=== PATIENT | female | born 1990 | race Caucasian/White ===

== ENCOUNTER 2017-06-12 07:14 | Inpatient (IN) | payer BC ==
[2017-06-12] MEDS ORDERED: OBEPIDURAL* 250 ML ONE (08:42)
[2017-06-12 09:11] LABS: Hematocrit 38 % (35-47); Mean Corpuscular HGB Conc 34 g/dl (31-36); Mean Corpuscular Hemoglobin 32 pg (27-31); Mean Corpuscular Volume 94 fL (80-97); Mean Platelet Volume 8 um3 (7.4-10.4); Red Blood Count 4.05 10^6/ul (4.0-5.4); Red Cell Distribution Width 13 % (10.5-15); White Blood Count 17.2 10^3/ul (3.5-10.8)
[2017-06-12] MEDS ORDERED: Phenylephrine IV* 40 MCG/ML 10 ML SYRINGE IV PUSH PRN ×2 (09:23)
[2017-06-12] MEDS ORDERED: Famotidine TAB* 20 MG PO PRN (09:23)
[2017-06-12] MEDS ORDERED: Sodium Citrate/Citric Acid* 15 ML UDC PO PRN (09:23)
[2017-06-12] MEDS ORDERED: OBEPIDURAL* 250 ML EPIDURAL SCH (10:00)
[2017-06-12] MEDS ORDERED: Oxytocin in LR* 20 UNITS/1,000 ML BAG IVPB ONE (13:45)
[2017-06-12] MEDS ORDERED: Oxytocin in LR* 20 UNITS/1,000 ML BAG IVPB SCH ×2 (14:00→16:00)
[2017-06-12] MEDS ORDERED: Dibucaine 1% 28.35 GM TUBE PR PRN (15:57)
[2017-06-12] MEDS ORDERED: Witch Hazel PAD* JAR TOPICAL PRN (15:57)
[2017-06-12] MEDS ORDERED: Glycerin ADULT SUPP PR PRN (15:57)
[2017-06-12] MEDS: Ibuprofen TAB* 600 MG PO PRN (21:03)
[2017-06-12] MEDS: Docusate CAP* 100 MG PO SCH (21:04)
[2017-06-13 07:08] LABS: Hematocrit 33 % (35-47); Hemoglobin 11.3 g/dl (12.0-16.0); Mean Corpuscular HGB Conc 34 g/dl (31-36); Mean Corpuscular Hemoglobin 32 pg (27-31); Mean Corpuscular Volume 94 fL (80-97); Mean Platelet Volume 8 um3 (7.4-10.4); Red Blood Count 3.53 10^6/ul (4.0-5.4); Red Cell Distribution Width 14 % (10.5-15); White Blood Count 15.7 10^3/ul (3.5-10.8)
[2017-06-13] MEDS: Sertraline* 100 MG TAB PO SCH (08:41)
[2017-06-13] MEDS: Omeprazole CAP* 20 MG PO SCH (08:42)
[2017-06-13] MEDS: Docusate CAP* 100 MG PO SCH ×3 (08:43→20:29)
[2017-06-13] MEDS: Ibuprofen TAB* 600 MG PO PRN ×3 (08:44→20:29)
[2017-06-13] MEDS: Acetaminophen TAB* 325 MG PO PRN ×2 (13:03→20:29)
[2017-06-13] MEDS: Ferrous Gluconate TAB* 324 MG TAB PO SCH ×2 (13:05→21:38)
--- NOTE | 2017-06-14 06:40 | PTEDU ---
Patient Name: REECE YANEZ REECE YANEZ selected video: Follow Me Mum: [employer] to view on 06/14/20 17 at 6:38:44 AM from [id number]
[2017-06-14] MEDS: Omeprazole CAP* 20 MG PO SCH (09:00)
[2017-06-14] MEDS: Docusate CAP* 100 MG PO SCH (09:00)
[2017-06-14] MEDS: Sertraline* 100 MG TAB PO SCH (09:00)
[2017-06-14] MEDS: Ibuprofen TAB* 600 MG PO PRN (09:40)
[2017-06-14 15:28] VITALS: BP 118/65
== END 2017-06-14 11:48 | disposition home or self-care (01) | DRG 560 ==
LOC: MCHOBOUT 07:14 → MCHOB 08:00
PROVIDERS: ADMIT Nurse Practitioner; ATTEND Midwife
PROC: 10E0XZZ Delivery of Products of Conception, External Approach (ICD-10-PCS; principal; 2017-06-12)
PROC: 0HQ9XZZ Repair Perineum Skin, External Approach (ICD-10-PCS; 2017-06-12)
DX: O63.0 Prolonged first stage (of labor) (principal); O99.344 Other mental disorders complicating childbirth; F41.8 Other specified anxiety disorders; O42.02 Full-term premature rupture of membranes, onset of labor within 24 hours of rupture; O70.0 First degree perineal laceration during delivery; Z3A.38 38 weeks gestation of pregnancy; Z37.0 Single live birth
CPT/HCPCS: 36415; 85025; 85027; 86850; 86900; 86901; A9270-GY

== ENCOUNTER 2018-10-14 10:00 | Emergency (ER) | payer BC ==
[2018-10-14 10:18] VITALS: BP 104/68
--- NOTE | 2018-10-14 10:38 | UC ---
Respiratory Complaint HPI - HPI Summary HPI Summary: cough x 7 days cough is productive, with clear sputum mild nasal congestion ,no fever, no chills perlitic right side chest pain x 1 day - History of Current Complaint Chief Complaint: UCGeneralIllness Stated Complaint: COUGH, CONGESTION Time Seen by Provider: 10/14/18 10:19 Hx Obtained From: Patient Hx Last Menstrual Period: IUD ?: No Onset/Duration: Gradual Onset, Lasting Days - 7, Still Present, Worse Since - yesterday Timing: Constant Severity Initially: Moderate Severity Currently: Moderate Pain Intensity: 6 Character: Cough: Productive Aggravating Factors: Exertion, Deep Breaths Associated Signs And Symptoms: Positive: Pleuritic Chest Pain, URI, Nasal Congestion. Negative: Dyspnea, Fever, Chills, Wheezing, Hemoptysis - Allergies/Home Medications Allergies/Adverse Reactions: Allergies Allergy/AdvReac Type Severity Reaction Status Date / Time No Known Allergies Allergy Verified 09/10/18 09:01 Home Medications: Home Medications Levonorgestrel (Iud) [Mirena IUD] 1 each VAGINAL DAILY 10/14/18 [History Confirmed 10/14/18] PMH/Surg Hx/FS Hx/Imm Hx Previously Healthy: Yes - Surgical History Surgical History: None - Family History Known Family History: Positive: Hypertension - Social History Alcohol Use: None Substance Use Type: None Smoking Status (MU): Former Smoker - Immunization History Most Recent Influenza Vaccination: declined Most Recent Pneumonia Vaccination: none Review of Systems All Other Systems Reviewed And Are Negative: Yes Constitutional: Positive: Negative Skin: Positive: Negative Eyes: Positive: Negative ENT: Positive: Nasal Discharge Respiratory: Positive: Cough Cardiovascular: Positive: Chest Pain Is Patient Immunocompromised?: No Physical Exam Triage Information Reviewed: Yes Appearance: Well-Appearing, No Pain Distress, Well-Nourished Vital Signs: Initial Vital Signs Temp 97.2 F 10/14/18 10:14 Pulse 62 10/14/18 10:14 Resp 16 10/14/18 10:14 BP 104/68 10/14/18 10:14 Pulse Ox 100 10/14/18 10:14 Vital Signs Reviewed: Yes Eye Exam: Normal Eyes: Positive: Conjunctiva Clear ENT: Positive: Normal ENT inspection, Hearing grossly normal, Pharynx normal Neck: Positive: Supple, Nontender, No Lymphadenopathy Respiratory Exam: Normal Respiratory: Positive: Chest non-tender, Lungs clear, Normal breath sounds Cardiovascular: Positive: RRR, No Murmur, Pulses Normal Abdominal Exam: Normal Abdomen Description: Positive: Nontender, Soft. Negative: CVA Tenderness (R), CVA Tenderness (L), Distended, Guarding Bowel Sounds: Positive: Present Skin Exam: Normal UC Diagnostic Evaluation - Laboratory O2 Sat by Pulse Oximetry: 100 Diagnostic Studies Comment: chest xray: IMPRESSION: No active cardiopulmonary disease is noted. Respiratory Course/Dx - Differential Dx/Diagnosis Provider Diagnosis: Pleuritic chest pain Discharge - Sign-Out/Discharge Documenting (check all that apply): Patient Departure All imaging exams completed and their final reports reviewed: Yes - Discharge Plan Condition: Stable Disposition: HOME Prescriptions: Benzonatate CAP* [Tessalon 100 MG CAP*] 100 mg PO TID PRN #21 cap PRN Reason: Cough Naproxen [Naproxen 500 mg tab] 500 mg PO BID #20 tablet Patient Education Materials: Pleurisy (ED) Referrals: Kelly Yu [employer]EL[employer] [Primary Care Provider] - If Needed - Billing Disposition and Condition Condition: STABLE Disposition: Home
== END 2018-10-14 11:10 | disposition home or self-care (01) ==
LOC: UCCORT 10:00
DX: R07.1 Chest pain on breathing (principal); R05 Cough; R09.81 Nasal congestion; Z87.891 Personal history of nicotine dependence
CPT/HCPCS: 71046; 99212; G0463

== ENCOUNTER 2019-08-30 12:05 | Emergency (ER) | payer BC ==
[2019-08-30 12:44] VITALS: BP 104/72
--- NOTE | 2019-08-30 13:57 | UC ---
Skin Complaint HPI - HPI Summary HPI Summary: 28-year-old female who started breaking out in hives over the past day. She has no known allergen exposure. She denies any difficulty breathing and does not feel like her throat is closing. - History of Current Complaint Chief Complaint: UCRash Time Seen by Provider: 08/30/19 13:48 Stated Complaint: SKIN COMPLAINT Hx Obtained From: Patient Hx Last Menstrual Period: ~ 3 yrs ?: No Onset/Duration: Gradual Onset Skin Exposure Onset/Duration: Days Ago Timing: Constant Onset Severity: Mild Current Severity: Mild Pain Intensity: 0 Location: Generalized Character: Pruritus, Hives Aggravating Factor(s): Nothing Alleviating Factor(s): Nothing Associated Signs & Symptoms: Positive: Negative - Allergy/Home Medications Allergies/Adverse Reactions: Allergies Allergy/AdvReac Type Severity Reaction Status Date / Time No Known Allergies Allergy Verified 09/10/18 09:01 Home Medications: Home Medications Vortioxetine Hydrobromide [Trintellix] 20 mg PO QPM 08/30/19 [History Confirmed 08/30/19] buPROPion TAB* [Wellbutrin TAB*] 150 mg PO QPM 08/30/19 [History Confirmed 08/30] diphenhydrAMINE HCl [Benadryl Allergy] 25 mg PO Q6H PRN 08/30/19 [History Confirmed 08/30/19] PMH/Surg Hx/FS Hx/Imm Hx Previously Healthy: Yes Psychological History: Anxiety - Surgical History Surgical History: None - Family History Known Family History: Positive: Hypertension - Social History Lives: With Family Alcohol Use: None Substance Use Type: None Smoking Status (MU): Former Smoker - Immunization History Most Recent Influenza Vaccination: declined Most Recent Pneumonia Vaccination: none Review of Systems All Other Systems Reviewed And Are Negative: Yes Skin: Positive: Rash Is Patient Immunocompromised?: No Physical Exam Triage Information Reviewed: Yes Appearance: Well-Appearing, No Pain Distress, Well-Nourished Vital Signs: Initial Vital Signs Temp 98.5 F 08/30/19 12:34 Pulse 66 08/30/19 12:34 Resp 20 08/30/19 12:34 BP 104/72 08/30/19 12:34 Pulse Ox 99 08/30/19 12:34 Vital Signs Reviewed: Yes Eyes: Positive: Conjunctiva Clear Respiratory: Positive: Lungs clear, Normal breath sounds, No respiratory distress, No accessory muscle use Cardiovascular: Positive: RRR, No Murmur, Pulses Normal, Brisk Capillary Refill Musculoskeletal Exam: Normal Neurological Exam: Normal Psychological Exam: Normal Skin: Positive: Rashes, Other - Scattered hive-like areas on hands abdomen and right buttock. Course/Dx - Course Course Of Treatment: Patient is comfortable here. She can continue Benadryl every 6 hours as directed and she can start prednisone today. - Diagnoses Provider Diagnosis: Urticaria Discharge ED - Sign-Out/Discharge Documenting (check all that apply): Patient Departure All imaging exams completed and their final reports reviewed: No Studies - Discharge Plan Condition: Fair Disposition: HOME Prescriptions: predniSONE TAB* [Deltasone 10 MG TAB*] 10 mg PO DAILY 12 Days #30 tab Patient Education Materials: Urticaria (ED) Referrals: Kelly Yu NP [Primary Care Provider] - Additional Instructions: Increase fluids, take the prednisone with food. Over the next day or 2 you can continue to take Benadryl 25 mg to 50 mg every 6 hours as needed for itching. Go to the emergency room if you develop any difficulty breathing, feeling like her throat is closing or any worsening symptoms. Definite follow-up with your primary care provider in for 5 days if no improvement. - Billing Disposition and Condition Condition: FAIR Disposition: Home
== END 2019-08-30 14:07 | disposition home or self-care (01) ==
LOC: UCCORT 12:05
DX: L50.9 Urticaria, unspecified (principal); F41.9 Anxiety disorder, unspecified; Z79.899 Other long term (current) drug therapy; Z87.891 Personal history of nicotine dependence
CPT/HCPCS: 99212; G0463